=== PATIENT | male | born 1955 | race Caucasian/White ===

== ENCOUNTER 2018-11-01 18:28 | Emergency (ER) | payer SELFPAY ==
[~2018-11-01] VITALS: Ht 165.1 cm; Wt 68.0 kg
[2018-11-01] MEDS ORDERED: ONDANSETRON HCL 4MG/2ML INJ IV STA (18:56)
[2018-11-01] MEDS ORDERED: SODIUM CHLORIDE 0.9% 1,000 ML IV ONE (18:56)
[2018-11-01 19:29] LABS: CLARITY URINE CLEAR (CLEAR); COLOR URINE YELLOW (YELLOW); KETONES URINE NEGATIVE (NEGATIVE); LEUKOCYTE ESTERASE URINE 1+ (NEGATIVE); NITRITE URINE NEGATIVE (NEGATIVE); OCCULT BLOOD URINE TRACE (NEGATIVE); PROTEIN URINE NEGATIVE (NEGATIVE); SPECIFIC GRAVITY URINE 1.003 (1.005-1.030); UROBILINOGEN URINE 0.2 E.U./dL (0.2-1.0)
[2018-11-01 19:32] LABS: BASOPHILS % 0.5 % (0.0-2.0); EOSINOPHILS % 0.4 % (0.0-5.0); HEMATOCRIT. 40.5 % (42.0-52.0); LYMPHOCYTES % 12.3 % (20.0-50.0); MEAN CORPUSCULAR HEMOGLOBIN 28.9 pg (28.0-32.0); MEAN CORPUSCULAR VOLUME 83.6 fL (80.0-94.0); MEAN PLATELET VOLUME 9.6 fl (7.4-10.4); MONOCYTES % 13.4 % (2.0-8.0); NEUTROPHILS % 73.4 % (40.0-76.0); PLATELET 128 x1000/uL (130-400); RED BLOOD CELL COUNT 4.85 mill/uL (4.7-6.1); RED CELL DISTRIBUTION WIDTH 13.4 % (11.6-14.6)
[2018-11-01 19:38] LABS: CHLORIDE 97 mEq/L (98-107)
[2018-11-01 19:41] LABS: INR 1.1; PARTIAL THROMBOPLASTIN TIME 26.6 sec (23.4-31.0)
[2018-11-01 19:42] LABS: ETHANOL BLOOD < 10 mg/dL
[2018-11-01 19:46] LABS: *AMPHETAMINES SCREEN URINE NEGATIVE (NEGATIVE); *BARBITURATES SCREEN URINE NEGATIVE (NEGATIVE); *BENZODIAZEPINES SCREEN URINE NEGATIVE (NEGATIVE); *COCAINE SCREEN URINE NEGATIVE (NEGATIVE)
[2018-11-01 19:47] LABS: CANNABINOID URINE SCREEN NEGATIVE (NEGATIVE); METHADONE URINE SCREEN NEGATIVE (NEGATIVE); OPIATES URINE SCREEN NEGATIVE (NEGATIVE); PHENCYCLIDINE URINE SCREEN NEGATIVE (NEGATIVE)
[2018-11-01] MEDS ORDERED: IOHEXOL-300 100 ML BOTTLE ONE (20:28)
[2018-11-01] MEDS ORDERED: POTASSIUM CHLORIDE 20MEQ TABLET SR PO ONE (21:00)
[2018-11-01 22:46] VITALS: BP 134/76
== END 2018-11-01 22:59 | disposition short-term general hospital (02) ==
LOC: ER 21:31
DX: S09.8XXA Other specified injuries of head, initial encounter (principal); S02.92XA Unspecified fracture of facial bones, initial encounter for closed fracture; S22.41XA Multiple fractures of ribs, right side, initial encounter for closed fracture; S00.83XA Contusion of other part of head, initial encounter; G93.89 Other specified disorders of brain; R41.82 Altered mental status, unspecified; E87.8 Other disorders of electrolyte and fluid balance, not elsewhere classified; W01.0XXA Fall on same level from slipping, tripping and stumbling without subsequent striking against object, initial encounter; Y93.02 Activity, running; Y92.410 Unspecified street and highway as the place of occurrence of the external cause; J34.2 Deviated nasal septum; M48.02 Spinal stenosis, cervical region; Z79.899 Other long term (current) drug therapy; N21.0 Calculus in bladder; K74.60 Unspecified cirrhosis of liver; K80.20 Calculus of gallbladder without cholecystitis without obstruction; I49.1 Atrial premature depolarization
CPT/HCPCS: 36415; 70450; 70486; 71045; 71260; 72125; 74177; 80053; 80305; 80320; 81003; 83690; 84484; 85025; 85610; 85730; 86850; 86900; 86901; 93005; 96361; 96374; 99285; J2405; J7030; Q9967; Z7610; G0480